=== PATIENT | male | born 1970 | race Caucasian/White ===

== ENCOUNTER 2018-04-19 10:55 | Emergency (ER) | payer OTHER ==
[2018-04-19] MEDS: HYDROCODONE/APAP (5/325) TAB PO (12:39)
== END 2018-04-19 13:47 | disposition home or self-care (01) ==
LOC: FTE 10:55
DX: M79.604 Pain in right leg (principal); I10 Essential (primary) hypertension; E11.9 Type 2 diabetes mellitus without complications; Z79.4 Long term (current) use of insulin; Z79.82 Long term (current) use of aspirin; Z87.891 Personal history of nicotine dependence
CPT/HCPCS: 93971; 99284-25

== ENCOUNTER 2018-04-24 14:49 | Inpatient (IN) | payer OTHER ==
[2018-04-24 15:39] LABS: MODE ROOM AIR; MetHgb Venous 0.4 %; Sample Type Blood venous; Site VENOUS LINE; Venous COHb 0.8 %; Venous Fraction OxyHgb 61.7 %; Venous Oxygen Sat 62.4 mmHG (55.0-75.0); Venous Total Hemglobin 12.3 g/dl
[2018-04-24] MEDS: SODIUM CHLORIDE 0.9% 1L BAG IV* (15:39)
[2018-04-24 15:43] LABS: ADD MAN DIFF? NO
[2018-04-24 16:02] LABS: WHITE BLOOD COUNT 9.2 10^3/ul (4.8-10.8)
[2018-04-24 16:02] LABS: ABNORMAL IP MESSAGE 1; BASOPHILS % 0.3 % (0.0-2.0); EOSINOPHILS # 0.1 10^3/ul (0.0-0.5); EOSINOPHILS % 0.8 % (0.0-7.0); HEMATOCRIT 34.2 % (42.0-52.0); HEMOGLOBIN 11.7 g/dl (14.0-18.0); LYMPHOCYTES # 0.4 10^3/ul (0.8-2.9); LYMPHOCYTES % 4.5 % (15.0-51.0); MEAN CORPUSCULAR HEMOGLOBIN 28.3 pg (29.0-33.0); MEAN CORPUSCULAR HGB CONC 34.2 g/dl (32.0-37.0); MEAN CORPUSCULAR VOLUME 82.8 fl (82.0-101.0); MEAN PLATELET VOLUME 9.8 fl (7.4-10.4); MONOCYTE # 0.2 10^3/ul (0.3-0.9); MONOCYTES % 2.3 % (0.0-11.0); NEUTROPHIL # 8.5 10^3/ul (1.6-7.5); NEUTROPHILS % 91.6 % (39.0-77.0); PLATELET COUNT 287 10^3/UL (140-415); POSITIVE DIFF @See below; RED BLOOD COUNT 4.13 10^6/ul (4.70-6.10); RED CELL DISTRIBUTION WIDTH 11.9 % (11.5-14.5)
[2018-04-24] MEDS: PIPER-TAZO 3.375 GM IV (PMX) 100 ML IVPB (16:11)
[2018-04-24 16:21] LABS: INR 0.92; PROTIME 12.5 Sec (11.9-14.9)
[2018-04-24 16:22] LABS: PARTIAL THROMBOPLASTIN TIME 29.5 Sec (23.0-35.0)
[2018-04-24 16:32] LABS: TROPONIN-I < 0.012 ng/ml (0.000-0.120)
[2018-04-24 17:17] LABS: ALANINE AMINOTRANSFERASE 8 IU/L (13-69); ALBUMIN/GLOBULIN RATIO 0.69; ALKALINE PHOSPHATASE 124 IU/L (42-121); ANION GAP 7 (5-13); ASPARTATE AMINO TRANSFERASE 22 IU/L (15-46); BILIRUBIN,INDIRECT 0.1 mg/dl (0-1.1); BILIRUBIN,TOTAL 0.1 mg/dl (0.2-1.3); BLOOD UREA NITROGEN 23 mg/dl (7-20); CALCIUM 8.4 mg/dl (8.4-10.2); CARBON DIOXIDE 25 mmol/L (21-31); CHLORIDE 98 mmol/L (97-110); CREATININE 1.21 mg/dl (0.61-1.24); Estimated GFR > 60 mL/min (>60); POTASSIUM 4.2 mmol/L (3.5-5.1); SODIUM 130 mmol/L (135-144); TOTAL PROTEIN 7.3 g/dl (6.1-8.1)
[2018-04-24 17:21] LABS: GLUCOSE 451 mg/dl (70-220)
[2018-04-24] MEDS: VANCOMYCIN 1 GM (PMX) 250 ML IVPB (17:23)
[2018-04-24 17:28] LABS: MAGNESIUM 1.9 mg/dl (1.7-2.5); PHOSPHORUS 3.4 mg/dl (2.5-4.9)
[2018-04-24] MEDS: INSULIN LISPRO 100 UNIT/ML VIAL SC (17:53)
[2018-04-24] MEDS ORDERED: DIAZEPAM 5 MG TAB PO (19:00)
[2018-04-24] MEDS ORDERED: VANCOMYCIN IV PER PHARMACY XX (19:00)
[2018-04-24] MEDS ORDERED: IBUPROFEN 600 MG TAB PO (19:00)
[2018-04-24] MEDS ORDERED: NACL 0.9% 3 ML SYG IV (19:00)
[2018-04-24] MEDS: SOD CHLORIDE 0.9% 100 ML (19:12)
[2018-04-24] MEDS: IOHEXOL 300MG/ML 150 ML BTL (19:12)
[2018-04-24] MEDS ORDERED: GLUCOSE GEL 15 GRAM TUBE PO ×2 (19:30)
[2018-04-24] MEDS ORDERED: GLUCAGON 1 MG INJ IM (19:30)
[2018-04-24] MEDS ORDERED: GLUCOSE GEL 15 GRAM TUBE BUCCAL (19:30)
[2018-04-24] MEDS ORDERED: DEXTROSE 50% 50 ML SYRINGE IV ×2 (19:30)
[2018-04-24] MEDS: VANCOMYCIN 500 MG (PMX) 100 ML IVPB (20:12)
[2018-04-24] MEDS: HEPARIN 5,000 UNIT/1 ML VIAL SC (20:14)
[2018-04-24] MEDS: ATORVASTATIN 40 MG TAB PO (20:16)
[2018-04-24] MEDS: INSULIN GLARGINE [LANTus] (100 UNITS/ML) SYG SC (20:33)
[2018-04-24] MEDS: INSULIN ASPART [NOVOLOG] 3 ML PEN SC (20:34)
[2018-04-24 20:47] LABS: LACTIC ACID 1.7 mmol/L (0.5-2.0)
[2018-04-25] MEDS: PIPER-TAZO 3.375 GM IV (PMX) 100 ML IVPB ×4 (01:08→23:53)
[2018-04-25] MEDS: HYDROCODONE/APAP (5/325) TAB PO ×2 (06:15→15:58)
[2018-04-25 07:44] LABS: ADD MAN DIFF? NO
[2018-04-25 07:53] LABS: BASOPHILS % 0.3 % (0.0-2.0); EOSINOPHILS # 0.2 10^3/ul (0.0-0.5); EOSINOPHILS % 1.9 % (0.0-7.0); HEMATOCRIT 27.6 % (42.0-52.0); LYMPHOCYTES # 1.1 10^3/ul (0.8-2.9); LYMPHOCYTES % 11.4 % (15.0-51.0); MEAN CORPUSCULAR HGB CONC 32.6 g/dl (32.0-37.0); MEAN CORPUSCULAR VOLUME 85.7 fl (82.0-101.0); MEAN PLATELET VOLUME 8.9 fl (7.4-10.4); MONOCYTE # 0.7 10^3/ul (0.3-0.9); MONOCYTES % 6.6 % (0.0-11.0); NEUTROPHILS % 79.4 % (39.0-77.0); PLATELET COUNT 277 10^3/UL (140-415); RED BLOOD COUNT 3.22 10^6/ul (4.70-6.10); RED CELL DISTRIBUTION WIDTH 11.7 % (11.5-14.5)
[2018-04-25 08:08] LABS: ALANINE AMINOTRANSFERASE 72 IU/L (13-69); ALBUMIN 2.9 g/dl (3.3-4.9); ALBUMIN/GLOBULIN RATIO 0.76; ALKALINE PHOSPHATASE 123 IU/L (42-121); ANION GAP 8 (5-13); ASPARTATE AMINO TRANSFERASE 129 IU/L (15-46); BILIRUBIN,INDIRECT 0.1 mg/dl (0-1.1); BILIRUBIN,TOTAL 0.1 mg/dl (0.2-1.3); BLOOD UREA NITROGEN 25 mg/dl (7-20); CALCIUM 8.8 mg/dl (8.4-10.2); CARBON DIOXIDE 26 mmol/L (21-31); CHLORIDE 100 mmol/L (97-110); CREATININE 1.19 mg/dl (0.61-1.24); Estimated GFR > 60 mL/min (>60); GLUCOSE 325 mg/dl (70-220); POTASSIUM 4.4 mmol/L (3.5-5.1); SODIUM 134 mmol/L (135-144); TOTAL PROTEIN 6.7 g/dl (6.1-8.1)
[2018-04-25] MEDS: VANCOMYCIN 1.25 GM in SOD CHLORIDE 0.9% 250 ML IVPB ×2 (08:11→20:40)
[2018-04-25] MEDS: HEPARIN 5,000 UNIT/1 ML VIAL SC ×2 (08:21→20:44)
[2018-04-25] MEDS: INSULIN ASPART [NOVOLOG] 3 ML PEN SC ×7 (08:21→20:44)
[2018-04-25] MEDS ORDERED: ASPIRIN (EC) 81 MG TAB PO (09:00)
[2018-04-25] MEDS: ATORVASTATIN 40 MG TAB PO (20:40)
[2018-04-25] MEDS: INSULIN GLARGINE [LANTus] (100 UNITS/ML) SYG SC (20:44)
[2018-04-26] MEDS ORDERED: Insulin NOVOLOG SS MODERATE Algorithm(NPO/TPN/ENTERAL FEEDS) SC (05:00)
[2018-04-26] MEDS: SOD CHLORIDE 0.9% 1,000 ML IV ×2 (05:18→17:33)
[2018-04-26 05:22] LABS: IMMEDIATE SPIN CROSSMATCH 1 2
[2018-04-26] MEDS ORDERED: INSULIN ASPART [NOVOLOG] 3 ML PEN SC ×2 (06:00→09:00)
[2018-04-26] MEDS: PIPER-TAZO 3.375 GM IV (PMX) 100 ML IVPB ×2 (07:08→13:14)
[2018-04-26] MEDS: INSULIN ASPART [NOVOLOG] 3 ML PEN SC ×4 (07:11→17:32)
[2018-04-26 07:46] LABS: ADD MAN DIFF? NO
[2018-04-26] MEDS: HEPARIN 5,000 UNIT/1 ML VIAL SC (08:05)
[2018-04-26] MEDS: VANCOMYCIN 1.25 GM in SOD CHLORIDE 0.9% 250 ML IVPB ×2 (08:05→21:17)
[2018-04-26 08:14] LABS: VANCOMYCIN,TROUGH 15.1 ug/ml (10.0-20.0)
[2018-04-26 08:23] LABS: WHITE BLOOD COUNT 9.4 10^3/ul (4.8-10.8)
[2018-04-26 08:23] LABS: BASOPHILS % 0.3 % (0.0-2.0); EOSINOPHILS # 0.2 10^3/ul (0.0-0.5); EOSINOPHILS % 1.7 % (0.0-7.0); HEMATOCRIT 27.1 % (42.0-52.0); HEMOGLOBIN 8.9 g/dl (14.0-18.0); LYMPHOCYTES # 1.4 10^3/ul (0.8-2.9); LYMPHOCYTES % 15.1 % (15.0-51.0); MEAN CORPUSCULAR HGB CONC 32.8 g/dl (32.0-37.0); MEAN CORPUSCULAR VOLUME 85.2 fl (82.0-101.0); MEAN PLATELET VOLUME 8.9 fl (7.4-10.4); MONOCYTE # 0.9 10^3/ul (0.3-0.9); MONOCYTES % 9.1 % (0.0-11.0); NEUTROPHIL # 6.9 10^3/ul (1.6-7.5); NEUTROPHILS % 73.3 % (39.0-77.0); PLATELET COUNT 264 10^3/UL (140-415); RED BLOOD COUNT 3.18 10^6/ul (4.70-6.10); RED CELL DISTRIBUTION WIDTH 11.9 % (11.5-14.5)
[2018-04-26 10:56] LABS: ADD MAN DIFF? NO
[2018-04-26 11:00] LABS: BASOPHILS % 0.3 % (0.0-2.0); EOSINOPHILS # 0.2 10^3/ul (0.0-0.5); EOSINOPHILS % 1.9 % (0.0-7.0); HEMATOCRIT 28.2 % (42.0-52.0); HEMOGLOBIN 9.2 g/dl (14.0-18.0); LYMPHOCYTES # 1.5 10^3/ul (0.8-2.9); LYMPHOCYTES % 15.2 % (15.0-51.0); MEAN CORPUSCULAR HGB CONC 32.6 g/dl (32.0-37.0); MEAN CORPUSCULAR VOLUME 85.7 fl (82.0-101.0); MEAN PLATELET VOLUME 8.5 fl (7.4-10.4); MONOCYTE # 0.9 10^3/ul (0.3-0.9); MONOCYTES % 8.8 % (0.0-11.0); NEUTROPHIL # 7.2 10^3/ul (1.6-7.5); NEUTROPHILS % 73.3 % (39.0-77.0); PLATELET COUNT 272 10^3/UL (140-415); RED BLOOD COUNT 3.29 10^6/ul (4.70-6.10); RED CELL DISTRIBUTION WIDTH 11.8 % (11.5-14.5)
[2018-04-26 11:00] LABS: WHITE BLOOD COUNT 9.8 10^3/ul (4.8-10.8)
[2018-04-26] MEDS: ATORVASTATIN 40 MG TAB PO (20:40)
[2018-04-26] MEDS: INSULIN GLARGINE [LANTus] (100 UNITS/ML) SYG SC (20:44)
[2018-04-27] MEDS: PIPER-TAZO 3.375 GM IV (PMX) 100 ML IVPB ×4 (00:48→21:34)
[2018-04-27] MEDS: INSULIN ASPART [NOVOLOG] 3 ML PEN SC ×3 (00:53→12:17)
[2018-04-27] MEDS: SOD CHLORIDE 0.9% 1,000 ML IV ×2 (06:30→17:46)
[2018-04-27 07:00] LABS: ADD MAN DIFF? NO
[2018-04-27] MEDS: morphine SULFATE/PF (2 MG/2 ML) SYG IV (07:01)
[2018-04-27] MEDS: morphine 2 MG INJ IV (07:04)
[2018-04-27 07:05] LABS: BASOPHILS % 0.1 % (0.0-2.0); EOSINOPHILS # 0.2 10^3/ul (0.0-0.5); EOSINOPHILS % 1.8 % (0.0-7.0); HEMATOCRIT 26.6 % (42.0-52.0); HEMOGLOBIN 8.7 g/dl (14.0-18.0); LYMPHOCYTES # 1.1 10^3/ul (0.8-2.9); LYMPHOCYTES % 13.3 % (15.0-51.0); MEAN CORPUSCULAR HEMOGLOBIN 28.2 pg (29.0-33.0); MEAN CORPUSCULAR HGB CONC 32.7 g/dl (32.0-37.0); MEAN CORPUSCULAR VOLUME 86.1 fl (82.0-101.0); MEAN PLATELET VOLUME 8.9 fl (7.4-10.4); MONOCYTE # 0.8 10^3/ul (0.3-0.9); MONOCYTES % 10.2 % (0.0-11.0); NEUTROPHILS % 74.1 % (39.0-77.0); PLATELET COUNT 274 10^3/UL (140-415); RED BLOOD COUNT 3.09 10^6/ul (4.70-6.10); RED CELL DISTRIBUTION WIDTH 11.9 % (11.5-14.5)
[2018-04-27 07:05] LABS: WHITE BLOOD COUNT 8.1 10^3/ul (4.8-10.8)
[2018-04-27 07:30] LABS: ANION GAP 9 (5-13); BLOOD UREA NITROGEN 27 mg/dl (7-20); CALCIUM 8.9 mg/dl (8.4-10.2); CARBON DIOXIDE 25 mmol/L (21-31); CHLORIDE 103 mmol/L (97-110); CREATININE 1.61 mg/dl (0.61-1.24); Estimated GFR 47 mL/min (>60); GLUCOSE 276 mg/dl (70-220); POTASSIUM 4.3 mmol/L (3.5-5.1); SODIUM 137 mmol/L (135-144)
[2018-04-27] MEDS: VANCOMYCIN 1.25 GM in SOD CHLORIDE 0.9% 250 ML IVPB (08:45)
[2018-04-27] MEDS ORDERED: MIDAZOLAM 1 MG/ML 2 ML INJ (14:15)
[2018-04-27] MEDS ORDERED: PROPOFOL 20 ML (14:15)
[2018-04-27] MEDS: BACITRACIN 50000 UNITS INJ (14:28)
[2018-04-27] MEDS: POLYMYXIN B 500000 UNIT INJ (14:29)
[2018-04-27] MEDS ORDERED: OXYCODONE/ACETAMINOPHEN (5/325) TAB PO ×2 (14:30)
[2018-04-27] MEDS ORDERED: DIPHENHYDRAMINE 50 MG INJ IV (14:30)
[2018-04-27] MEDS ORDERED: LABETALOL HCL 20MG INJ IV (14:30)
[2018-04-27] MEDS ORDERED: hydrALAzine 20 MG INJ IV (14:30)
[2018-04-27] MEDS ORDERED: HYDROmorphONE 1 MG/5 ML IV SYRINGE IV (14:30)
[2018-04-27] MEDS ORDERED: EPHEDrine SULFATE 50 MG/5 ML SYG IV (14:30)
[2018-04-27] MEDS ORDERED: FENTAnyl 50 MCG/ML VIAL IV ×3 (14:30)
[2018-04-27] MEDS ORDERED: ONDANSETRON 4 MG INJ IV (14:30)
[2018-04-27] MEDS ORDERED: MEPERIDINE 25 MG INJ IV (14:30)
[2018-04-27] MEDS ORDERED: METOCLOPRAMIDE 10 MG INJ IV (14:30)
[2018-04-27] MEDS ORDERED: ONDANSETRON 4 MG INJ (15:22)
[2018-04-27] MEDS ORDERED: CEFAZOLIN 1 GM INJ (15:22)
[2018-04-27] MEDS ORDERED: METOCLOPRAMIDE 10 MG INJ (15:23)
[2018-04-27] MEDS ORDERED: KETOROLAC 30 MG INJ (15:23)
[2018-04-27] MEDS ORDERED: DEXAMETHASONE 4 MG/ML 5 ML INJ (15:23)
[2018-04-27] MEDS ORDERED: HYDROCODONE/APAP (5/325) TAB PO (16:00)
[2018-04-27] MEDS ORDERED: NACL 0.9% 3 ML SYG IV (16:00)
[2018-04-27] MEDS: HYDROmorphONE 1 MG/5 ML IV SYRINGE IV ×2 (16:10→17:05)
[2018-04-27] MEDS ORDERED: morphine SULFATE/PF (2 MG/2 ML) SYG IV (16:30)
[2018-04-27] MEDS: ATORVASTATIN 40 MG TAB PO (20:22)
[2018-04-27] MEDS: Insulin NOVOLOG SS MILD Algorithm (SS with meals and bedtime) SC (20:31)
[2018-04-27] MEDS: INSULIN GLARGINE [LANTus] (100 UNITS/ML) SYG SC (20:31)
[2018-04-27] MEDS ORDERED: INSULIN ASPART [NOVOLOG] 3 ML PEN SC (21:00)
[2018-04-27] MEDS: VANCOMYCIN 750 MG (PMX) 250 ML IVPB (22:38)
[2018-04-27] MEDS ORDERED: morphine LIQ (10 MG/5 ML) CUP PO (23:00)
[2018-04-28] MEDS: CEFAZOLIN 1 GM/50 ML (PMX) 50 ML IVPB ×3 (01:03→16:14)
[2018-04-28] MEDS: SOD CHLORIDE 0.9% 1,000 ML IV ×4 (01:58→19:37)
[2018-04-28] MEDS: ACCUCHECK AT 2AM (Patients on SS coverage) XX (02:00)
[2018-04-28] MEDS: INSULIN ASPART [NOVOLOG] 3 ML PEN SC ×5 (03:07→21:45)
[2018-04-28] MEDS: PIPER-TAZO 3.375 GM IV (PMX) 100 ML IVPB (05:52)
[2018-04-28] MEDS: Insulin NOVOLOG SS MILD Algorithm (SS with meals and bedtime) SC ×2 (07:57→11:13)
[2018-04-28] MEDS: ENOXAPARIN 40 MG/0.4 ML SYG SC (08:19)
[2018-04-28 10:15] LABS: CREATININE 2.03 mg/dl (0.61-1.24)
[2018-04-28 10:17] LABS: BLOOD UREA NITROGEN 37 mg/dl (7-20)
[2018-04-28] MEDS: ERTAPENEM SODIUM 1 GM in SOD CHLORIDE 0.9% 100 ML IVPB (13:45)
[2018-04-28] MEDS ORDERED: PIPER-TAZO 2.25 GM (PMX) 50 ML IVPB (14:00)
[2018-04-28] MEDS: CLINDAMYCIN 900 MG/D5W (PMX) 50 ML IVPB ×2 (14:27→21:57)
[2018-04-28 16:52] LABS: ADD UMIC YES; UR ASCORBIC ACID NEGATIVE (NEGATIVE); UR BILIRUBIN (Dip) NEGATIVE (NEGATIVE); UR BLOOD (Dip) 1+ mg/dL (NEGATIVE); UR CLARITY CLEAR (CLEAR); UR COLOR YELLOW (YELLOW); UR GLUCOSE (Dip) 3+ mg/dL (NEGATIVE); UR KETONES (Dip) NEGATIVE (NEGATIVE); UR LEUKOCYTE ESTERASE (Dip) TRACE Leu/ul (NEGATIVE); UR NITRITE (Dip) NEGATIVE (NEGATIVE); UR RBC 2 /HPF (0-5); UR SPECIFIC GRAVITY (Dip) 1.021 (1.003-1.030); UR TOTAL PROTEIN (Dip) 1+ mg/dl (NEGATIVE); UR UROBILINOGEN (Dip) NEGATIVE (NEGATIVE); UR WBC 17 /HPF (0-5)
[2018-04-28 20:44] LABS: CREATININE,URINE RANDOM 116.43 mg/dl (20-370)
[2018-04-28 20:44] LABS: SODIUM,URINE RANDOM 21 mmol/L (30-90)
[2018-04-28] MEDS: ATORVASTATIN 40 MG TAB PO (21:28)
[2018-04-29] MEDS: ACCUCHECK AT 2AM (Patients on SS coverage) XX (02:00)
[2018-04-29] MEDS: SOD CHLORIDE 0.9% 1,000 ML IV ×3 (03:50→21:11)
[2018-04-29] MEDS: CLINDAMYCIN 900 MG/D5W (PMX) 50 ML IVPB ×3 (06:07→21:50)
[2018-04-29 06:16] LABS: ADD MAN DIFF? NO
[2018-04-29 06:21] LABS: WHITE BLOOD COUNT 7.4 10^3/ul (4.8-10.8)
[2018-04-29 06:21] LABS: BASOPHILS % 0.3 % (0.0-2.0); EOSINOPHILS # 0.1 10^3/ul (0.0-0.5); EOSINOPHILS % 1.5 % (0.0-7.0); HEMATOCRIT 26.8 % (42.0-52.0); HEMOGLOBIN 8.8 g/dl (14.0-18.0); LYMPHOCYTES # 1.3 10^3/ul (0.8-2.9); LYMPHOCYTES % 17.5 % (15.0-51.0); MEAN CORPUSCULAR HGB CONC 32.8 g/dl (32.0-37.0); MEAN CORPUSCULAR VOLUME 85.4 fl (82.0-101.0); MEAN PLATELET VOLUME 8.6 fl (7.4-10.4); MONOCYTE # 0.7 10^3/ul (0.3-0.9); MONOCYTES % 9.2 % (0.0-11.0); NEUTROPHIL # 5.2 10^3/ul (1.6-7.5); PLATELET COUNT 332 10^3/UL (140-415); RED BLOOD COUNT 3.14 10^6/ul (4.70-6.10)
[2018-04-29 06:49] LABS: ALANINE AMINOTRANSFERASE 24 IU/L (13-69); ALBUMIN 2.3 g/dl (3.3-4.9); ALKALINE PHOSPHATASE 143 IU/L (42-121); ASPARTATE AMINO TRANSFERASE 23 IU/L (15-46); TOTAL PROTEIN 5.3 g/dl (6.1-8.1)
[2018-04-29 06:53] LABS: ANION GAP 9 (5-13); BLOOD UREA NITROGEN 33 mg/dl (7-20); CALCIUM 8.3 mg/dl (8.4-10.2); CARBON DIOXIDE 22 mmol/L (21-31); CHLORIDE 107 mmol/L (97-110); CREATININE 1.97 mg/dl (0.61-1.24); Estimated GFR 37 mL/min (>60); GLUCOSE 259 mg/dl (70-220); PHOSPHORUS 3.6 mg/dl (2.5-4.9); POTASSIUM 4.6 mmol/L (3.5-5.1); SODIUM 138 mmol/L (135-144)
[2018-04-29] MEDS: INSULIN ASPART [NOVOLOG] 3 ML PEN SC ×7 (08:15→21:00)
[2018-04-29] MEDS: ENOXAPARIN 30 MG/0.3 ML SYG SC (09:18)
[2018-04-29 09:47] LABS: IRON 43 ug/dl (35-150)
[2018-04-29 09:57] LABS: % IRON SATURATION 22 % SAT (22-52); TOTAL IRON BINDING CAPACITY 194 ug/dl (241-421)
[2018-04-29 10:20] LABS: HEPATITIS B SURFACE ANTIGEN NEGATIVE (NEGATIVE)
[2018-04-29] MEDS: LINAGLIPTIN 5 MG TABLET PO (10:31)
[2018-04-29 10:37] LABS: HEPATITIS C VIRAL ANTIBODY NEGATIVE (NEGATIVE)
[2018-04-29 13:22] LABS: C-PEPTIDE 3.31 ng/mL (0.80-3.85)
[2018-04-29] MEDS: ERTAPENEM SODIUM 1 GM in SOD CHLORIDE 0.9% 100 ML IVPB (13:30)
[2018-04-29] MEDS: ATORVASTATIN 40 MG TAB PO (21:10)
[2018-04-30] MEDS: ACCUCHECK AT 2AM (Patients on SS coverage) XX (01:35)
[2018-04-30] MEDS: ACETAMINOPHEN 325 MG TAB PO ×2 (04:23→14:32)
[2018-04-30] MEDS: CLINDAMYCIN 900 MG/D5W (PMX) 50 ML IVPB ×3 (05:10→23:37)
[2018-04-30 06:08] LABS: ADD MAN DIFF? NO
[2018-04-30 06:09] LABS: BASOPHILS % 0.3 % (0.0-2.0); EOSINOPHILS # 0.1 10^3/ul (0.0-0.5); EOSINOPHILS % 1.8 % (0.0-7.0); HEMATOCRIT 28.1 % (42.0-52.0); HEMOGLOBIN 9.3 g/dl (14.0-18.0); LYMPHOCYTES # 1.1 10^3/ul (0.8-2.9); LYMPHOCYTES % 13.4 % (15.0-51.0); MEAN CORPUSCULAR HEMOGLOBIN 28.1 pg (29.0-33.0); MEAN CORPUSCULAR HGB CONC 33.1 g/dl (32.0-37.0); MEAN CORPUSCULAR VOLUME 84.9 fl (82.0-101.0); MEAN PLATELET VOLUME 8.2 fl (7.4-10.4); MONOCYTE # 0.5 10^3/ul (0.3-0.9); MONOCYTES % 6.7 % (0.0-11.0); NEUTROPHIL # 6.1 10^3/ul (1.6-7.5); NEUTROPHILS % 77.3 % (39.0-77.0); PLATELET COUNT 382 10^3/UL (140-415); RED BLOOD COUNT 3.31 10^6/ul (4.70-6.10); RED CELL DISTRIBUTION WIDTH 12.2 % (11.5-14.5)
[2018-04-30 06:09] LABS: WHITE BLOOD COUNT 7.9 10^3/ul (4.8-10.8)
[2018-04-30 07:01] LABS: ANION GAP 7 (5-13); BLOOD UREA NITROGEN 28 mg/dl (7-20); CALCIUM 8.8 mg/dl (8.4-10.2); CARBON DIOXIDE 21 mmol/L (21-31); CHLORIDE 110 mmol/L (97-110); CREATININE 1.96 mg/dl (0.61-1.24); Estimated GFR 37 mL/min (>60); GLUCOSE 125 mg/dl (70-220); PHOSPHORUS 4.4 mg/dl (2.5-4.9); POTASSIUM 4.5 mmol/L (3.5-5.1); SODIUM 138 mmol/L (135-144)
[2018-04-30] MEDS: INSULIN ASPART [NOVOLOG] 3 ML PEN SC ×7 (07:55→21:00)
[2018-04-30] MEDS: LINAGLIPTIN 5 MG TABLET PO (08:10)
[2018-04-30] MEDS: ENOXAPARIN 30 MG/0.3 ML SYG SC (08:16)
[2018-04-30] MEDS: hydrALAzine 20 MG INJ IV (11:37)
[2018-04-30] MEDS: ERTAPENEM SODIUM 1 GM in SOD CHLORIDE 0.9% 100 ML IVPB (13:38)
[2018-04-30] MEDS: ATORVASTATIN 40 MG TAB PO (21:48)
[2018-05-01] MEDS: ACCUCHECK AT 2AM (Patients on SS coverage) XX (02:00)
[2018-05-01] MEDS: CLINDAMYCIN 900 MG/D5W (PMX) 50 ML IVPB (06:22)
[2018-05-01 06:50] LABS: ANION GAP 12 (5-13); BLOOD UREA NITROGEN 31 mg/dl (7-20); CARBON DIOXIDE 22 mmol/L (21-31); CHLORIDE 106 mmol/L (97-110); CREATININE 1.91 mg/dl (0.61-1.24); Estimated GFR 38 mL/min (>60); GLUCOSE 114 mg/dl (70-220); PHOSPHORUS 4.6 mg/dl (2.5-4.9); POTASSIUM 4.7 mmol/L (3.5-5.1); SODIUM 140 mmol/L (135-144)
[2018-05-01] MEDS: INSULIN ASPART [NOVOLOG] 3 ML PEN SC ×4 (08:00→13:29)
[2018-05-01] MEDS: LINAGLIPTIN 5 MG TABLET PO (08:33)
[2018-05-01] MEDS: ENOXAPARIN 30 MG/0.3 ML SYG SC (08:35)
[2018-05-01 16:12] LABS: CREATININE, RANDOM URINE 110 mg/dL (20-320); MICROALBUMIN 7.3 mg/dL; MICROALBUMIN/CREATININE RATIO 66 (<30)
== END 2018-05-01 18:10 | disposition home or self-care (01) | DRG 853 ==
LOC: TEL 04-29 10:35 → 2NE 04-30 16:40 → E/R 14:49 → TEL 18:00
PROVIDERS: Internal Medicine
PROC: 0K9Q00Z Drainage of Right Upper Leg Muscle with Drainage Device, Open Approach (ICD-10-PCS; principal; 2018-04-27 14:00)
PROC: 30233N1 Transfusion of Nonautologous Red Blood Cells into Peripheral Vein, Percutaneous Approach (ICD-10-PCS; 2018-04-27 14:50)
PROC: 4A033R1 Measurement of Arterial Saturation, Peripheral, Percutaneous Approach (ICD-10-PCS; 2018-04-27 14:50)
DX: A41.9 Sepsis, unspecified organism (principal); N17.0 Acute kidney failure with tubular necrosis; L02.415 Cutaneous abscess of right lower limb; L03.115 Cellulitis of right lower limb; E11.319 Type 2 diabetes mellitus with unspecified diabetic retinopathy without macular edema; E11.65 Type 2 diabetes mellitus with hyperglycemia; E11.22 Type 2 diabetes mellitus with diabetic chronic kidney disease; I12.9 Hypertensive chronic kidney disease with stage 1 through stage 4 chronic kidney disease, or unspecified chronic kidney disease; N18.2 Chronic kidney disease, stage 2 (mild); E78.5 Hyperlipidemia, unspecified; D64.9 Anemia, unspecified; B95.62 Methicillin resistant Staphylococcus aureus infection as the cause of diseases classified elsewhere; R74.0 Nonspecific elevation of levels of transaminase and lactic acid dehydrogenase [LDH]; E11.42 Type 2 diabetes mellitus with diabetic polyneuropathy; Z91.19 Patient's noncompliance with other medical treatment and regimen; Z89.411 Acquired absence of right great toe; Z89.421 Acquired absence of other right toe(s); Z79.4 Long term (current) use of insulin; Z79.82 Long term (current) use of aspirin; T36.95XA Adverse effect of unspecified systemic antibiotic, initial encounter; Y92.230 Patient room in hospital as the place of occurrence of the external cause
CPT/HCPCS: 36415; 36430; 71045; 73700; 76775; 80048; 80053; 80076; 80202; 81001; 81003; 82043; 82565; 82728; 82803; 82962; 83540; 83605; 83735; 84100; 84155; 84300; 84484; 84520; 84681; 85025; 85610; 85730; 86078; 86644; 86803; 86850; 86900; 86901; 86920; 87040; 87070; 87075; 87081; 87102; 87340; 93005; 93970; 96372; 96374; 96375; 97110; 97116; 97161; 97530; 99291-25

== ENCOUNTER 2018-05-07 10:18 | Emergency (ER) | payer OTHER ==
[2018-05-07] MEDS: HYDROCODONE/APAP (5/325) TAB PO (11:18)
[2018-05-07] MEDS: BROMFENAC SODIUM 1.7 ML OPH DROP LEFT EYE (11:22)
[2018-05-07] MEDS: DEXAMETHASONE 0.1% 5 ML OPH LEFT EYE (11:22)
== END 2018-05-07 11:59 | disposition home or self-care (01) ==
LOC: FTE 10:18
DX: H15.102 Unspecified episcleritis, left eye (principal); E11.9 Type 2 diabetes mellitus without complications; I10 Essential (primary) hypertension; Z79.4 Long term (current) use of insulin; Z79.82 Long term (current) use of aspirin
CPT/HCPCS: 99283; Z7502

== ENCOUNTER 2018-05-10 12:25 | Emergency (ER) | payer SELFPAY, OTHER | END 2018-05-10 16:20 | disposition left against medical advice (07) | LOC: FTE 12:25 | DX: Z53.21 Procedure and treatment not carried out due to patient leaving prior to being seen by health care provider (principal) ==

== ENCOUNTER 2018-12-29 19:58 | Emergency (ER) | payer OTHER | END 2018-12-29 23:41 | disposition home or self-care (01) | LOC: E/R 23:41 | DX: S91.102A Unspecified open wound of left great toe without damage to nail, initial encounter (principal); I10 Essential (primary) hypertension; E11.9 Type 2 diabetes mellitus without complications; L98.8 Other specified disorders of the skin and subcutaneous tissue; X58.XXXA Exposure to other specified factors, initial encounter; Y92.9 Unspecified place or not applicable; Z79.82 Long term (current) use of aspirin; Z79.4 Long term (current) use of insulin | CPT/HCPCS: 73660; 99284-25 ==